=== PATIENT | female | born 1985 | race Caucasian/White ===

== ENCOUNTER 2024-10-31 13:30 | Emergency (ER) | payer OTHER ==
[2024-10-31 13:42] VITALS: BMI 33.4
[2024-10-31 15:07] LABS: BASO % 1.6 % (0-2.0); EOS % 2.4 % (0-4.5); HEMATOCRIT 39.3 % (32.4-45.2); HEMOGLOBIN 13.4 GM/dL (10.7-15.3); LYMPH % 34.6 % (8-40); MCH 29.6 pg (25.7-33.7); MCHC 34.2 g/dl (32.0-36.0); MEAN CELL VOLUME 86.5 fl (80-96); MEAN PLT VOLUME 9.6 fl (7.5-11.1); MONO % 6.9 % (3.8-10.2); NEUT % 54.5 % (42.8-82.8); PLATELET COUNT 186 10^3/uL (134-434); RBC 4.54 M/mm3 (3.60-5.2); RDW 13.5 % (11.6-15.6); WHITE BLOOD COUNT 6.3 K/mm3 (4.0-10.0)
[2024-10-31 15:22] LABS: PROTHROMBIN TIME (PATIENT) 11.3 SEC (9.7-13.0)
[2024-10-31 15:25] LABS: ACTIVATED PTT 30.7 SECONDS (25.2-36.5)
[2024-10-31] MEDS ORDERED: METOCLOPRAMIDE HCL INJECTION 10 MG/2 ML VIAL ONE (17:09)
[2024-10-31] MEDS ORDERED: ACETAMINOPHEN INJECTION 100 ML ONE (17:10)
[2024-10-31] MEDS: LACTATED RINGERS SOLUTION 1000 ML INFUS.BAG IV ONE (17:29)
[2024-10-31] MEDS: METOCLOPRAMIDE HCL INJECTION 10 MG/2 ML VIAL IVPUSH ONE (17:29)
[2024-10-31] MEDS: ACETAMINOPHEN 1000 MG/100 ML BAG IVPB ONE (17:29)
[2024-10-31 18:12] LABS: POTASSIUM 5.3 mmol/L (3.5-5.1)
[2024-10-31 18:14] LABS: ALBUMIN 3.2 g/dl (3.4-5.0); CALCIUM 8.7 mg/dL (8.5-10.1)
[2024-10-31 18:17] LABS: CREATININE 0.7 mg/dL (0.55-1.3)
[2024-10-31 18:19] LABS: BILIRUBIN,TOTAL 0.6 mg/dL (0.2-1); TOT PROT 6.2 g/dl (6.4-8.2)
[2024-10-31 19:01] LABS: URINE APPEARANCE CLOUDY
[2024-10-31 19:11] LABS: EPI CELLS 24 /uL (0-25.1); HYALINE CASTS 0 /uL (0-3.1); PH,URINE 6.5 (5.0-8.0); URINE BACTERIA 290 /uL (0-1359); URINE BILIRUBIN NEGATIVE (NEGATIVE); URINE COLOR RED; URINE GLUCOSE (UA) NEGATIVE (NEGATIVE); URINE KETONE NEGATIVE (NEGATIVE); URINE LEUK ESTERASE 1+ (NEGATIVE); URINE NITRITE NEGATIVE (NEGATIVE); URINE PROTEIN 1+ (NEGATIVE); URINE RBC 10950 /uL (0-23.9); URINE UROBILINOGEN 0.2 mg/dL (0.2-1.0); URINE WBC 47 /uL (0-25.8)
[2024-10-31 20:19] LABS: HIV INTERPRETATION NEGATIVE (NEGATIVE)
[2024-10-31 22:11] LABS: BASO % 0.6 % (0-2.0); EOS % 2.5 % (0-4.5); HEMATOCRIT 40.6 % (32.4-45.2); HEMOGLOBIN 13.3 GM/dL (10.7-15.3); LYMPH % 47.8 % (8-40); MCH 28.9 pg (25.7-33.7); MCHC 32.7 g/dl (32.0-36.0); MEAN CELL VOLUME 88.2 fl (80-96); MEAN PLT VOLUME 9.5 fl (7.5-11.1); MONO % 5.4 % (3.8-10.2); NEUT % 43.7 % (42.8-82.8); PLATELET COUNT 174 10^3/uL (134-434); RBC 4.61 M/mm3 (3.60-5.2); RDW 13.3 % (11.6-15.6)
[2024-10-31 22:44] VITALS: BP 110/78; PULSE 78; RESP 19; TEMP 97.9
== END 2024-10-31 22:42 | disposition home or self-care (01) ==
LOC: JER 13:30
PROC: 3E033NZ Introduction of Analgesics, Hypnotics, Sedatives into Peripheral Vein, Percutaneous Approach (ICD-10-PCS; principal; 2024-10-31)
PROC: 3E033GC Introduction of Other Therapeutic Substance into Peripheral Vein, Percutaneous Approach (ICD-10-PCS; 2024-10-31)
DX: N93.9 Abnormal uterine and vaginal bleeding, unspecified (principal)
CPT/HCPCS: 36415; 76830-TC; 80053; 81003; 84703; 85025; 85610; 85730; 86803; 86850; 86900; 86901; 87086; 87389; 99284-25; J0131

== ENCOUNTER 2025-07-14 18:21 | Inpatient (IN) | payer OTHER ==
[2025-07-14 18:37] VITALS: BMI 37.5
[2025-07-14] MEDS ORDERED: ACETAMINOPHEN 325 MG TABLET (FP) ONE (19:59)
[2025-07-14] MEDS ORDERED: SULFAMETHOXAZOLE/TRIMETHOPRIM 800MG/160MG D.S. TABLET ONE (19:59)
[2025-07-14] MEDS ORDERED: CEFAZOLIN 1 GM/D5W 1 GM/50 ML BAG ONE (20:00)
[2025-07-14] MEDS: ACETAMINOPHEN 325 MG TABLET (FP) PO ONE (20:15)
[2025-07-14] MEDS: SULFAMETHOXAZOLE/TRIMETHOPRIM 800MG/160MG D.S. TABLET PO ONE (20:15)
[2025-07-14] MEDS: CEFAZOLIN 1 GM in DEXTROSE 5%-WATER - 50 ML IVPB ONE (20:15)
[2025-07-14 20:30] LABS: ABSOLUTE IMMATURE GRANULOCYTES 0.02 x10^3/uL (0.0-0.031); BASOPHILS # 0.05 x10^3/uL (0.01-0.08); EOSINOPHIL % 3.2 % (0.7-5.8); EOSINOPHILS # 0.25 x10^3/uL (0.04-0.36); MCHC 33.4 g/dl (32.2-35.5); MEAN CELL VOLUME 88.6 fl (79.4-94.8); MEAN PLT VOLUME 11.1 fl (9.4-12.3); MONOCYTE # 0.47 x10^3/uL (0.24-0.86); MONOCYTE % 6.0 % (4.7-12.5); RDW 12.4 % (12.1-16.8)
[2025-07-14 20:50] LABS: GLUCOSE,RANDOM 90.0 mg/dL (74-106)
[2025-07-14 20:51] LABS: TOT PROT 6.7 g/dl (6.4-8.2)
[2025-07-14 20:53] LABS: ALK PHOS 87.0 U/L (40-150)
[2025-07-14 20:56] LABS: SGOT/AST 54.0 U/L (5-34); SGPT/ALT 113.0 U/L (0-55)
[2025-07-14 20:57] LABS: CREATININE 0.75 mg/dL (0.55-1.3)
[2025-07-14 21:31] LABS: CO2 21.0 mmol/L (21-32)
[2025-07-14 23:03] LABS: ERYTHROCYTE SEDIMENTATION RATE 15 mm/hr (0-20)
[2025-07-15] MEDS ORDERED: PIPERACILLIN/TAZOB 3.375 GM 3.375 GM in DEXTROSE 5%-WATER - 50 ML IVPB SCH (02:00)
[2025-07-15] MEDS: ACETAMINOPHEN 1000 MG/100 ML BAG IVPB PRN (02:07)
[2025-07-15] MEDS: VANCOMYCIN PREMIX 1.75 GM 1,750 MG/350 ML PIGGYBACK IVPB ONE (03:08)
[2025-07-15] MEDS: ENOXAPARIN NA (PORCINE) 40 MG/0.4 ML DISP.SYRIN SQ SCH (10:22)
[2025-07-15] MEDS: DOXYCYCLINE INJECTION 100 MG in DEXTROSE 5%-WATER 100 ML IVPB SCH (12:28)
[2025-07-15] MEDS: CEFTRIAXONE 1 GM in DEXTROSE 5%-WATER - 50 ML IVPB SCH (13:56)
[2025-07-16 01:26] VITALS: PULSE 70; RESP 18
[2025-07-16 08:15] LABS: MCHC 32.8 g/dl (32.2-35.5); MEAN CELL VOLUME 88.9 fl (79.4-94.8); MEAN PLT VOLUME 10.9 fl (9.4-12.3); RDW 12.2 % (12.1-16.8)
[2025-07-16 09:07] LABS: GLUCOSE,RANDOM 114.0 mg/dL (74-106); TOT PROT 6.4 g/dl (6.4-8.2)
[2025-07-16 09:08] LABS: CO2 22.0 mmol/L (21-32)
[2025-07-16 09:13] LABS: CREATININE 0.7 mg/dL (0.55-1.3); SGOT/AST 49.0 U/L (5-34); SGPT/ALT 101.0 U/L (0-55)
[2025-07-16 09:30] LABS: ALK PHOS 74.0 U/L (40-150)
[2025-07-16] MEDS ORDERED: DOXYCYCLINE HYCLATE 100 MG TABLET PO SCH ×2 (10:08→22:00)
[2025-07-16] MEDS: LACTOBACILLUS ACIDOPHILUS 1 TABLET PO SCH (10:31)
[2025-07-16] MEDS: DOXYCYCLINE HYCLATE 100 MG TABLET PO SCH (10:44)
[2025-07-16] MEDS: ACETAMINOPHEN 325 MG TABLET (FP) PO PRN (10:45)
[2025-07-16 11:50] VITALS: BP 110/74; TEMP 97.8
== END 2025-07-16 13:42 | disposition home or self-care (01) | DRG 383 ==
LOC: JER 18:21 → JERBED 19:27 → OBSVTOIN 19:27 → J8W 07-15 01:51
PROVIDERS: ADMIT Internal Medicine; ATTEND Nurse Practitioner Acute Care
DX: L03.317 Cellulitis of buttock (principal); L02.31 Cutaneous abscess of buttock; E66.9 Obesity, unspecified; Z68.37 Body mass index [BMI] 37.0-37.9, adult; F31.89 Other bipolar disorder; Z22.322 Carrier or suspected carrier of Methicillin resistant Staphylococcus aureus
CPT/HCPCS: 36415; 73701-TC-RT; 76882-TC-LT; 80053; 83735; 84100; 84703; 85025; 85651; 86140; 87070; 87205; 93005; 93010; 99285-25; J3373; Q9967